=== PATIENT | female | born 1945 | race Caucasian/White ===

== ENCOUNTER → 2017-02-01 | Outpatient (CLI) | payer MEDICARE, BC | LOC: MC.RAD 13:00 | DX: Z12.31 Encounter for screening mammogram for malignant neoplasm of breast (principal) ==

== ENCOUNTER → 2018-02-11 | Outpatient (CLI) | payer MEDICARE, BC | LOC: MC.RAD 13:45 | DX: Z12.31 Encounter for screening mammogram for malignant neoplasm of breast (principal) ==

== ENCOUNTER → 2019-03-07 | Outpatient (CLI) | payer MEDICARE, BC | LOC: MC.RAD 03-06 13:45 | DX: Z12.31 Encounter for screening mammogram for malignant neoplasm of breast (principal) ==

== ENCOUNTER → 2020-04-22 | Outpatient (CLI) | payer MEDICARE, BC | LOC: MC.RAD 12:48 | DX: Z12.31 Encounter for screening mammogram for malignant neoplasm of breast (principal) ==

== ENCOUNTER → 2021-04-28 | Outpatient (CLI) | payer MEDICARE, BC | LOC: MC.RAD 13:03 | DX: Z12.31 Encounter for screening mammogram for malignant neoplasm of breast (principal) ==

== ENCOUNTER → 2022-05-04 | Outpatient (CLI) | payer MEDICARE, BC | LOC: MC.RAD 12:56 | DX: Z12.31 Encounter for screening mammogram for malignant neoplasm of breast (principal) ==

== ENCOUNTER 2023-11-06 06:50 | Day surgery (SDC) | payer MEDICARE, BC ==
[~2023-11-06] VITALS: Ht 144.9 cm; Wt 61.5 kg
[2023-11-06 07:53] LABS: BASO # 0.1 K/mm3 (0.0-0.2); EOS # 0.2 K/mm3 (0.0-0.7); EOS % 3.1 % (0.0-4.0); GRAN # 4.5 K/mm3 (1.4-6.5); GRAN % 66.6 % (42.2-75.2); HEMOGLOBIN 11.5 g/dl (12.5-16.0); LYMPH # 1.4 K/mm3 (1.2-3.4); LYMPH % 20.6 % (20.0-51.0); MEAN CELL VOLUME 90 fl (80.0-100.0); MEAN CORPUSCULAR HEMOGLOBIN 30 pg (27-31); MEAN CORPUSCULAR HGB CONC 34 g/dl (33.0-37.0); MEAN PLATELET VOLUME 10.9 fl (7.4-10.4); MONO # 0.6 K/mm3 (0.1-0.6); MONO % 8.3 % (1.7-9.3); PLATELET COUNT 219 K/mm3 (130-400); REDCELL DISTRIBUTION WIDTH-CV 13.3 % (11.5-14.5)
[2023-11-06] MEDS ORDERED: ZOCOR 40MG40 MG PO (07:55)
[2023-11-06] MEDS ORDERED: LOTENSIN40 MG PO (07:55)
[2023-11-06] MEDS ORDERED: AMARYL4 MG PO (07:56)
[2023-11-06] MEDS ORDERED: JANUVIA 100MG100 MG PO (07:57)
[2023-11-06] MEDS ORDERED: GLUCOPHAGE XR500 M1 PO (07:57)
[2023-11-06 07:58] LABS: PROTHROMBIN TIME 11.3 SECONDS (9.7-12.8)
[2023-11-06] MEDS ORDERED: ASPIRIN E.C. 8181 MG PO (08:00)
[2023-11-06 08:01] LABS: HEMATOCRIT 34.2 % (37.0-47.0)
[2023-11-06] MEDS ORDERED: PRILOSEC 20MG20 MG PO (08:01)
[2023-11-06] MEDS ORDERED: VITAMIN D31000 IU PO (08:01)
[2023-11-06] MEDS ORDERED: JARDIANCE10 PO (08:01)
[2023-11-06] MEDS ORDERED: FLEXERIL 1010 MG/TAB PO (08:02)
[2023-11-06] MEDS ORDERED: MELATONIN5 M1 SL (08:02)
[2023-11-06] MEDS ORDERED: PEPCID40 MG PO (08:02)
[2023-11-06 08:15] LABS: CREATININE, serum 1.05 mg/dL (0.57-1.11); POTASSIUM 4.1 mmol/L (3.5-4.5)
[2023-11-06 08:18] VITALS: BP 185/91; PULSE 94; TEMP 98.1
[2023-11-06 09:45] VITALS: BP 183/101; PULSE 87
[2023-11-06 10:00] VITALS: BP 187/80; PULSE 82
[2023-11-06 10:15] VITALS: BP 173/79; PULSE 80
[2023-11-06 10:30] VITALS: BP 192/85; PULSE 86
[2023-11-06 10:45] VITALS: BP 177/82; PULSE 86
--- NOTE | 2023-11-06 11:00 | NUR ---
DC instructions reviewed with pt and sons, all express understanding. Pt has sipped water following procedure, no issues with swallowing. Denies desire for food at this time, stating she is not hungry. She is steady on feet in room. She plans to continue montioring her BP at home, and will take her normal daily meds once she's eaten lunch. She is assisted out by wheelchair to son's car with belongings.
== END 2023-11-06 11:00 | disposition home or self-care (01) ==
LOC: COL.CAR 06:50
PROVIDERS: Internal Medicine Cardiovascular Disease
DX: I35.0 Nonrheumatic aortic (valve) stenosis (principal); I11.9 Hypertensive heart disease without heart failure; E78.2 Mixed hyperlipidemia
CPT/HCPCS: J2704

== ENCOUNTER → 2024-07-03 | Outpatient (CLI) | payer MEDICARE, BC ==
[~2024-07-03] MED LIST: AMARYL4 MG PO; ASPIRIN E.C. 8181 MG PO; FLEXERIL 1010 MG/TAB PO; GLUCOPHAGE XR500 M1 PO; JANUVIA 100MG100 MG PO; JARDIANCE10 PO; LOTENSIN40 MG PO; MELATONIN5 M1 SL; PEPCID40 MG PO; PRILOSEC 20MG20 MG PO; VITAMIN D31000 IU PO; ZOCOR 40MG40 MG PO
== END ==
LOC: MC.RAD 13:00
DX: Z12.31 Encounter for screening mammogram for malignant neoplasm of breast (principal)